=== PATIENT | female | born 2000 | race Hispanic/Latino ===

== ENCOUNTER 2025-09-01 11:40 | Outpatient (CLI) | payer OTHER | END 2025-09-01 11:41 | disposition home or self-care (01) | LOC: SCSULT 11:40 | PROVIDERS: ATTEND Family Medicine | DX: Z34.82 Encounter for supervision of other normal pregnancy, second trimester (principal); N28.89 Other specified disorders of kidney and ureter; Z3A.22 22 weeks gestation of pregnancy | CPT/HCPCS: 76805 ==